=== PATIENT | male | born 1965 | race Asian ===

== ENCOUNTER 2021-03-16 11:58 | Emergency (ER) | payer OTHER ==
[~2021-03-16] VITALS: Ht 172.7 cm; Wt 68.0 kg
[~2021-03-16 11:58] MED LIST: METOPROLOL25 M1 PO
[2021-03-16 12:13] VITALS: TEMP 99.6
[2021-03-16 13:22] VITALS: BP 156/96
== END 2021-03-16 13:23 | disposition home or self-care (01) ==
LOC: ED 11:58
DX: M70.72 Other bursitis of hip, left hip (principal); I10 Essential (primary) hypertension; F17.210 Nicotine dependence, cigarettes, uncomplicated
CPT/HCPCS: 96372; 99283; J1885; J2930

== ENCOUNTER 2021-03-30 22:45 | Emergency (ER) | payer OTHER ==
[~2021-03-30] VITALS: Ht 172.7 cm; Wt 68.0 kg
[2021-03-31 00:34] LABS: PLATELET COUNT 145 K/uL (142-355)
[2021-03-31 00:37] LABS: POTASSIUM 4.1 mmol/L (3.6-5.2)
[2021-03-31 00:40] VITALS: BP 170/108; TEMP 98
== END 2021-03-31 00:45 | disposition home or self-care (01) ==
LOC: ED 22:45
PROVIDERS: Emergency Medicine Emergency Medical Services
DX: M89.8X8 Other specified disorders of bone, other site (principal); I10 Essential (primary) hypertension; F17.210 Nicotine dependence, cigarettes, uncomplicated
CPT/HCPCS: 36415; 80053; 85027; 86140; 99283

== ENCOUNTER 2022-10-11 21:01 | Emergency (ER) | payer OTHER ==
[~2022-10-11] VITALS: Ht 172.7 cm; Wt 72.6 kg
[2022-10-11 21:01] VITALS: TEMP 97.3
[2022-10-11 21:16] LABS: PLATELET COUNT 167 K/uL (142-355)
[2022-10-11 21:22] LABS: POTASSIUM 4.7 mmol/L (3.6-5.2)
[2022-10-12 00:10] VITALS: BP 132/98
== END 2022-10-12 00:10 | disposition home or self-care (01) ==
LOC: ED 21:01
PROVIDERS: Family Medicine
DX: J44.1 Chronic obstructive pulmonary disease with (acute) exacerbation (principal); R06.00 Dyspnea, unspecified; F17.210 Nicotine dependence, cigarettes, uncomplicated; F12.90 Cannabis use, unspecified, uncomplicated
CPT/HCPCS: 36415; 36600; 80053; 82550; 82805; 83880; 84484; 85027; 87502; 87635; 93005; 94660; 94664; 96374; 99285; J2060; U0003